=== PATIENT | female | born 1970 | race Caucasian/White ===

== ENCOUNTER 2022-03-29 20:44 | Emergency (ER) | payer OTHER ==
[2022-03-29] MEDS ORDERED: LORazepam 2 MG/ML INJ IV STA (21:02)
[2022-03-29] MEDS ORDERED: ONDANSETRON 4 MG/2 ML VIAL IVP STA (21:02)
[2022-03-29] MEDS ORDERED: ALBUTEROL NEB (CONC) 2.5 MG/0.5 ML INHALATION STA (21:05)
[2022-03-29] MEDS ORDERED: IPRATROPIUM-ALBUTEROL 3 ML NEB INHALATION STA (21:05)
[2022-03-29] MEDS ORDERED: cloNIDine HCL 0.1 MG TAB PO STA (21:06)
[2022-03-29] MEDS ORDERED: methylPREDNISolone SOD SUCCI 125 MG/2 ML VIAL IV STA (21:09)
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
[2022-03-29 21:36] LABS: Basophils % (A) 0 %; Eosinophils % (A) 0 %; HCT 37.8 % (34.0-46.0); HGB 12.1 gm/dL (11.4-16.0); Hypochromasia Moderate; Lymphocytes # (A) 1.1 k/uL (1.0-4.8); Lymphocytes % (A) 14 %; MCH 25.6 pg (25.0-35.0); MCHC 31.9 g/dL (31.0-37.0); MCV 80.3 fL (80.0-100.0); Mean Platelet Volume 7.1; Monocytes # (A) 0.3 k/uL (0-1.0); Monocytes % (A) 4 %; Neutrophils # (A) 6.6 k/uL (1.3-7.7); Neutrophils % (A) 81 %; Platelet Count 420 k/uL (150-450); RBC 4.71 m/uL (3.80-5.40); RDW 15.3 % (11.5-15.5); WBC 8.1 k/uL (3.8-10.6)
--- NOTE | 2022-03-29 21:45 | XR ---
EXAMINATION TYPE: XR chest 1V portable DATE OF EXAM: 03/29/2022 COMPARISON: NONE HISTORY: Abdominal pain TECHNIQUE: Single view FINDINGS: Heart and mediastinum are normal. Lungs are clear. Diaphragm is normal. There are chest nhung ds. Bony thorax appears normal. IMPRESSION: Normal chest.
[2022-03-29 21:51] LABS: ALT 20 U/L (4-34); AST 30 U/L (14-36); African American GFR (CKD) >90 (>60 ml/min/1.73 sqM); Albumin 4.3 g/dL (3.5-5.0); Alkaline Phosphatase 81 U/L (38-126); Anion Gap 7 mmol/L; Blood Urea Nitrogen 14 mg/dL (7-17); Calcium 9.1 mg/dL (8.4-10.2); Carbon Dioxide 27 mmol/L (22-30); Chloride 103 mmol/L (98-107); Glucose 132 mg/dL (74-99); Lipase 78 U/L (23-300); Magnesium 1.9 mg/dL (1.6-2.3); Non-African American GFR(CKD) >90 (>60 ml/min/1.73 sqM); Partial Thromboplastin Time 23.9 sec (22.0-30.0); Potassium 3.8 mmol/L (3.5-5.1); Sodium 137 mmol/L (137-145); Total Bilirubin 0.6 mg/dL (0.2-1.3); Total Protein 8.4 g/dL (6.3-8.2)
[2022-03-29 21:52] LABS: HCG,Qualitative Serum Not Detected
[2022-03-29] MEDS ORDERED: SODIUM CHLORIDE 0.9% 1,000 ML IV ONE (21:58)
[2022-03-29 22:02] VITALS: RESP 16
--- NOTE | 2022-03-29 22:53 | CT ---
EXAMINATION TYPE: CT chest angio for PE DATE OF EXAM: 03/29/2022 COMPARISON: None HISTORY: Dyspnea, elevated D-dimer. CT DLP: 246.4 mGycm Automated exposure control for dose reduction was used. CONTRAST: Performed with IV Contrast, patient injected with 100cc mL of Isovue 370. There are Three-D postprocessed images. There is diffuse pulmonary emphysema. Heart size is normal. No pericardial effusion. No evidence of p leural effusion or pneumothorax. There is no mediastinal adenopathy. There are no hilar masses. Thoracic aorta is intact. No aneurysm or dissection. The ascending aorta measures 3.4 cm. There is no evidence of filling defect in the pulmonary arteries. The thoracic spine is intact sternum is intact. No evidence of rib fracture. Upper normal soft tissue s are intact. IMPRESSION: No evidence of pulmonary embolism. Pulmonary emphysema. No suspicious pulmonary mass.
[2022-03-29 23:22] VITALS: PULSE 92
[2022-03-29 23:52] VITALS: BP 177/115; TEMP 98.7
== END 2022-03-30 | disposition home or self-care (01) ==
LOC: EC 20:44
DX: J44.1 Chronic obstructive pulmonary disease with (acute) exacerbation (principal); F11.23 Opioid dependence with withdrawal; I10 Essential (primary) hypertension; R79.89 Other specified abnormal findings of blood chemistry; Z20.822 Contact with and (suspected) exposure to COVID-19; Z87.891 Personal history of nicotine dependence; Z88.8 Allergy status to other drugs, medicaments and biological substances; Z86.59 Personal history of other mental and behavioral disorders
CPT/HCPCS: 94640; 93005; 85379; 83880; 80053; 83605; 83690; 83735; 84484; 85025; 85610; 85730; 84703; 87040; 87636; 71045; 71275; 99285; 96374; 96375; 96361; J2060; J2930; J2405; Q9967; 36415